=== PATIENT | male | born 1955 | race Caucasian/White ===

== ENCOUNTER 2017-02-05 21:27 | Emergency (ER) | payer OTHER ==
[2017-02-05] MEDS ORDERED: TORADOL IM ONE (22:16)
[2017-02-05] MEDS ORDERED: DECADRON IM ONE (22:16)
--- NOTE | 2017-02-05 22:16 | PROVIDER DOCUMENTATION ---
HPI-Musculoskeletal Pain/Inj - GENERAL Chief Complaint: Shoulder Pain Stated Complaint: EXTREMITY PAIN Time Seen by Provider: 02/05/17 22:08 Source: patient - HX OF PRESENT ILLNESS-MUSKULOSKELTAL Nature of Presenting Problem: 61 yom c/o right shoulder pain, Sharp that radiates down right arm. Pain just started earlier this morning. Denies any numbness or tingling at this time. Pt has some limited ROM with right shoulder. Quality of Pain: reports: aching, sharp Severity in ED: moderate Onset/Duration: other (Chronic) Timing: still present, constant Modifying Factors: improves with: nothing Any recent injury?: No Locality of Occurance: Home Similar Symptoms Previously?: Yes (Chronic shoulder pain) Recently seen or treated by another doctor?: No Review of Systems - Adult - REVIEW OF SYSTEMS - ADULT Constitutional: reports: see HPI. denies: no symptoms reported, chills, fever, fatique, night sweats, weight gain, weight loss, other Eyes: reports: no symptoms reported. denies: see HPI, discharge, dry eyes, decreased vision, blurred vision, double vision, eye pain, redness, other Ears, Nose, Mouth & Throat: reports: no symptoms reported. denies: see HPI, ear discharge, ear pain, hearing loss, tinnitus, epistaxis, sinus problem, nose pain, loose teeth, mouth/dental pain, mouth swelling, hoarseness, throat pain, throat swelling, other Cardiovascular: reports: no symptoms reported. denies: see HPI, chest pain, edema, heart murmur, irregular heart rate, orthopnea, palpitations, poor circulation, PND, syncope, other Respiratory: reports: no symptoms reported. denies: see HPI, chronic cough, cough, dyspnea on exertion, excessive sputum production, hemoptysis, pleurisy, shortness of breath, wheezing, other Gastrointestinal: reports: no symptoms reported. denies: see HPI, abdominal pain, hematemesis, constipation, diarrhea, difficulty swallowing, frequent heartburn, nausea, poor appetite, rectal bleeding, vomiting, other Genitourinary: reports: no symptoms reported. denies: see HPI, dysuria, discharge, frequency, flank pain, frequent UTI's, hematuria, hesitency, incontinence, urinary retention, urgency, other Musculoskeletal: reports: see HPI, joint pain, muscle aches Integumentary: reports: no symptoms reported. denies: see HPI, hives, hair loss , itching, mole changes, nail changes, rash, skin sores/ulcer, skin thickening, other Neurological: reports: no symptoms reported. denies: see HPI, ataxia, dizziness /vertigo, headache/migraines, loss of balance, numbness, paresthesia, seizure, slurred speech, syncope, tremors, other All Other Systems: Reviewed and Negative Past History - Adult - PAST MEDICAL HISTORY-ADULT Review of Records: reports: Old Records Reviewed, Nursing Assessment Review, Medications Reviewed, Social history reviewed & non-contributory. Physical Exam-Injury Related - Physical Exam-Injury Related Initial Vital Signs Reviewed: Yes General Appearance: appears well, alert, no apparent distress. negative: mild distress, moderate distress, severe distress, cachetic, obese, thin, anxious, lethargic, slow to respond, obtunded, combative, other Immobilization?: negative: backboard, C-collar, applied in ED, applied [employer] Eyes: PERRL/EOMI, pink conjunctivae. negative: fundi clear, no AV nicking, anisocoria, conjuctival exudate, EOM palsy, meningismus, pale conjunctivae, photophobia, sclera injected, scleral icterus, subconjunctival hemorrhage, sunken eyes, other Head, Ears, Nose, Mouth & Throat: normocephalic/atraumatic, moist mucous membranes, normal ENT inspection, TMs normal, pharynx normal Neck: non-tender, full range of motion, supple, normal inspection. negative: pain with axial compression, Brudzinski's sign, carotid bruit, C-spine tenderness, decresed ROM, ecchymosis, limited range of motion, lymphadenopathy, muscle spasm, nexus criteria negative, pain on movement, subcutaneous emphysema , swelling, trachial deviation, tender lateral, tender midline, thyromegaly, vertebral point tenderness, other Respiratory: chest non-tender, lungs clear, normal breath sounds, no pleuratic chest pain, no respiratory distress, no accessory muscle use. negative: respiratory distress, decreased breath sounds, accessory muscle use, crackles, rales, rhonchi, stridor, wheezing, dull on percussion, prolonged expiration, pain on inspiration, pleural rub, retractions, splinting, decreased rate, increased rate, crepitus, ecchymosis, flail chest, palpable fracture, paradoxical movements, rib tenderness, seat belt bruising, tenderness, other Cardiovascular: normal peripheral pulses, regular rate, rhythm, no edema, no gallop, no JVD, no murmur. negative: JVD, bradycardia, tachycardia, diastolic murmur, systolic murmur, gallop/S3, gallop/S4, extra beats, friction rub, irregularly irregular, PMI displaced laterally, other Abdominal Exam: normal bowel sounds, non tender, soft, no organomegaly, no pulsatile mass. negative: abdominal bruit, abnormal bowel sounds, distended, guarding, rigid, rebound, tenderness, hernia, mass, hepatomegaly, spleenomegaly , McBurney's point tenderness, Muir's sign, obturator sign, prominent aortic pulsations, psoas, Rovsing's sign, other Male Genitalia: deferred Lymphatic: no adenopathy. negative: axilla node tender, cervical node tenderness, inguinal node tender, enlargement, striations, streaking, other Back Exam: normal inspection, no CVA tenderness, no vertebral tenderness. negative: CVA tenderness, decreased range of motion, ecchymosis, kyphosis, lordosis, muscle spasm, scoliosis, swelling, vertebral tenderness, other Extremity: normal range of motion, normal inspection, tenderness Integumentary: normal color, warm/dry Neurologic: grossly normal Psych/Mental Status: oriented x 3 - Glascow Coma Score Best Eye Response ([place]): (4) open spontaneously Best Verbal Response ([place]): (5) oriented Best Motor Response ([place]): (6) obeys commands [place] Total: 15 Progress - PLAN OF CARE/RESULTS Progress/Plan/Lab Results: Orders Category Date Time Status Dexamethasone [Decadron] Med 02/05/17 22:16 Discontinued 4 mg IM NOW ONE Ketorolac [Toradol] Med 02/05/17 22:16 Discontinued 60 mg IM NOW ONE Vital Signs Temp Pulse Resp BP Pulse Ox 02/05/17 22:46 97.4 F L 74 20 141/94 95 02/05/17 21:29 98 F 73 18 179/100 No Known Allergies Allergy (Verified 02/05/17 21:35) Ketorolac [Toradol] 10 mg PO Q6H PRN PRN #6 tablet 02/05/17 PAIN IN RIGHT SHOULDER (02/05/17) PAIN IN RIGHT ARM (02/05/17) STRAIN UNSP MUSC/FASC/TEND AT SHLDR/UP ARM, RIGHT ARM, INIT (02/05/17) Departure - Departure Time of Disposition Order: 22:17 DIAGNOSIS: Right shoulder strain Qualifiers: Encounter type: initial encounter Qualified Code(s): S46.911A - Strain of unspecified muscle, fascia and tendon at shoulder and upper arm level, right arm , initial encounter Disposition: HOME 01 Certified Medical Emergency: Emergent Condition: Stable Additional Instructions: ED Follow Up Instructions: You have been treated by a care provider in the Emergency Department. These instructions are being provided to you so you can have an understanding of how to care for yourself upon discharge. Upon discharge from the Emergency Department, you are responsible for making arrangements for follow-up care by a physician of your choice. Take all prescribed medications as directed. Return to the Emergency Department immediately for any new or worsening symptoms. You may call the Physician Referral phone number at [phone] to obtain a list of Physicians who are taking new patients. Prescriptions: Ketorolac [Toradol] 10 mg PO Q6H PRN PRN #6 tablet PRN Reason: Pain Referrals: None,PCP [Primary Care Provider] - Ivonne Salinas MD [STAFF PHYSICIAN] - Instructions: Shoulder Pain, Musculoskeletal Pain, Ketorolac tablets Attestation - Physician/ JOON Attestation Patient care was provided by Advanced Practice Provider:: Yes Advanced Practice Provider:: Jose Miguel Townsend Advanced Practice Provider documentation review:: The Mid-level provider documentation, treatment plan and medical decision making was reviewed by the physician who agrees with all treatment and medical decision making by the MLP. Physician Attestation - Physician Attestation I, the provider, attest to the following statement:: Toro Wisdom Physician documentation Attestation:: This documentation recorded by the scribe accurately reflects the service I personally performed and the decisions made by me.
[2017-02-05 22:47] VITALS: BP 141/94
== END 2017-02-05 22:48 | disposition home or self-care (01) ==
LOC: P.ED 21:27
DX: S46.911A Strain of unspecified muscle, fascia and tendon at shoulder and upper arm level, right arm, initial encounter (principal); M25.511 Pain in right shoulder; M79.601 Pain in right arm
CPT/HCPCS: 96372; J1100; J1885